=== PATIENT | female | born 2005 | race Caucasian/White ===

== ENCOUNTER 2024-03-11 06:35 | Outpatient (REF) | payer MEDICAID, SELFPAY ==
--- NOTE | ~2024-03-11 | US_ITS ---
EXAMINATION: US PELVIS CLINICAL INFORMATION: IUD check, pelvic pain, irregular menses COMPARISON: None available. TECHNIQUE: Ultrasound of the pelvis is performed using both transabdominal and transvaginal transducers along with Doppler. Transvaginal imaging is performed due to inadequate visualization transabdominally. FINDINGS: Uterus: The uterus is anteverted and measures 9.4 x 4.0 x 4.2 cm. The double wall endometrial thickness is 3 mm. An IUD is present in the endometrial canal, properly positioned. The uterus is smooth in contour and has normal myometrial echogenicity. No visible fibroid. Adnexa: Both ovaries are visualized. There is normal color flow to the adnexa. There is no ovarian torsion. There is no pelvic ascites or fluid collection. Right ovary measures 2.4 x 3.1 x 2.3 cm for a volume of 8.9 mL and appears normal. Left ovary measures 30.3 x 2.7 x 3.2 cm for a volume of 14.8 mL and appears normal. US/US pelvic and transvaginal IMPRESSION: 1. Normal-appearing uterus and ovaries. 2. IUD is present in the endometrial canal, properly positioned. Electronically signed by: Chan Vallejo MD 03/11/2024 02:57 PM EDT
== END 2024-03-11 06:36 | disposition home or self-care (01) ==
LOC: HO.UMASIMG 06:35
PROVIDERS: Visit Provider Nurse Practitioner Women's Health
DX: N92.6 Irregular menstruation, unspecified (principal)
CPT/HCPCS: 76830; 76856